=== PATIENT | female | born 1990 | race Caucasian/White ===

== ENCOUNTER 2017-04-04 13:23 | Emergency (ER) | payer MEDICARE, MEDICAID ==
--- NOTE | 2017-04-04 14:09 | ER Document Report ---
ED Medical Screen (RME) - General Chief Complaint: Suicidal Ideation Stated Complaint: PSYCH EVAL/SUICIDAL IDEATION Time Seen by Provider: 04/04/17 14:07 Notes: pt suicidal TRAVEL OUTSIDE OF THE [place] IN LAST 30 DAYS: No Past Medical History - Social History Chew tobacco use (# tins/day): No Frequency of alcohol use: None Drug Abuse: None Renal/ Medical History: Denies: Hx Peritoneal Dialysis Physical Exam - Vital signs Vitals: Temp Pulse Resp BP Pulse Ox 98.7 F 89 20 135/84 H 99 04/04/17 13:38 04/04/17 13:38 04/04/17 13:38 04/04/17 13:38 04/04/17 13:38 Course - Vital Signs Vital signs: Temp Pulse Resp BP Pulse Ox 98.7 F 89 20 135/84 H 99 04/04/17 13:38 04/04/17 13:38 04/04/17 13:38 04/04/17 13:38 04/04/17 13:38
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
[2017-04-04 15:22] LABS: ABSOLUTE EOSINOPHILS # (AUTO) 0.1 10^3/uL (0.0-0.6); ABSOLUTE LYMPHOCYTES (AUTO) 1.1 10^3/uL (0.5-4.7); ABSOLUTE MONOCYTES (AUTO) 0.4 10^3/uL (0.1-1.4); BASOPHILS % (AUTO) 0.6 % (0-2); HEMATOCRIT 37.7 % (36.0-47.0); HGB HCT DIFFERENCE 1.3; LYMPHOCYTES % (AUTO) 19.6 % (13-45); MEAN CORPUSCULAR HEMOGLOBIN 30.3 pg (27.0-33.4); MEAN CORPUSCULAR HGB CONC 34.6 g/dL (32.0-36.0); MEAN CORPUSCULAR VOLUME 88 fl (80-97); MONOCYTES % (AUTO) 7.7 % (3-13); SEGMENTED NEUTROPHILS % (AUTO) 70.1 % (42-78); WHITE BLOOD COUNT 5.7 10^3/uL (4.0-10.5)
[2017-04-04 15:23] LABS: APPEARANCE,URINE CLOUDY; BILIRUBIN,URINE NEGATIVE (NEGATIVE); CALCIUM OXALATE CRYSTALS,URINE TOO NUMEROUS TO CNT /HPF; GLUCOSE, URINE NEGATIVE (NEGATIVE); KETONES,URINE NEGATIVE (NEGATIVE); LEUKOCYTE ESTERASE,URINE TRACE (NEGATIVE); NITRITE,URINE NEGATIVE (NEGATIVE); PROTEIN,URINE 100 mg/dL (NEGATIVE); URINE SPECIFIC GRAVITY 1.036; UROBILINOGEN,URINE NEGATIVE mg/dL (<2.0)
[2017-04-04 15:31] LABS: URINE BARBITURATES SCREEN NEGATIVE; URINE METHADONE SCREEN NEGATIVE; URINE OPIATES LOW NEGATIVE; URINE PHENCYCLIDINE SCREEN NEGATIVE
[2017-04-04 15:35] LABS: ALANINE AMINOTRANSFERASE 28 U/L (9-52); ALBUMIN 4.9 g/dL (3.5-5.0); ALKALINE PHOSPHATASE 84 U/L (38-126); ANION GAP 16 (5-19); ASPARTATE AMINO TRANSFERASE 24 U/L (14-36); BILIRUBIN,DIRECT 0.3 mg/dL (0.0-0.4); BILIRUBIN,TOTAL 0.4 mg/dL (0.2-1.3); BLOOD UREA NITROGEN 9 mg/dL (7-20); CALCIUM 9.5 mg/dL (8.4-10.2); CARBON DIOXIDE 29 mmol/L (22-30); CHLORIDE 98 mmol/L (98-107); CREATININE RESULT 0.74 mg/dL (0.52-1.25); GLUCOSE 89 mg/dL (75-110); POTASSIUM 3.5 mmol/L (3.6-5.0); TOTAL PROTEIN 7.3 g/dL (6.3-8.2)
[2017-04-04 15:37] LABS: ALCOHOL < 10 mg/dL (NONE DETECTED)
--- NOTE | 2017-04-04 16:40 | ER Document Report ---
ED General - General Chief Complaint: Suicidal Ideation Stated Complaint: PSYCH EVAL/SUICIDAL IDEATION Time Seen by Provider: 04/04/17 14:07 Mode of Arrival: Ambulatory Information source: Patient Notes: This is a 26-year-old female with a history of epilepsy, PTSD who was brought into the emergency room because of suicidal ideations. TRAVEL OUTSIDE OF THE [place] IN LAST 30 DAYS: No - HPI Onset: Just prior to arrival Onset/Duration: Sudden Quality of pain: No pain Severity: None Pain Level: Denies Associated symptoms: denies: Chills, Fever Exacerbated by: Denies Relieved by: Denies Similar symptoms previously: Yes Recently seen / treated by doctor: Yes - Related Data Allergies/Adverse Reactions: No Known Allergies Allergy (Unverified 04/04/17 14:25) Home Medications: Current Home Medications Brivaracetam [Briviact] 75 mg PO BID 04/04/17 [History] Clobazam [Onfi] 20 mg PO QHS 04/04/17 [History] Lamotrigine [Lamictal] 50 mg PO DAILY 04/04/17 [History] Norethindrone 0.35 mg PO DAILY 04/04/17 [History] Rufinamide [Banzel] 800 mg PO BID 04/04/17 [History] Sertraline HCl [Zoloft] 25 mg PO DAILY 04/04/17 [History] Past Medical History - General Information source: Patient - Social History Smoking Status: Never Smoker Cigarette use (# per day): No Chew tobacco use (# tins/day): No Frequency of alcohol use: None Drug Abuse: None Lives with: Family Family History: None Patient has suicidal ideation: Yes Patient has homicidal ideation: No - Past Medical History Cardiac Medical History: Reports: None Pulmonary Medical History: Reports: None EENT Medical History: Reports: None Neurological Medical History: Reports: Hx Seizures Endocrine Medical History: Reports: None Renal/ Medical History: Denies: Hx Peritoneal Dialysis Malignancy Medical History: Reports: None GI Medical History: Reports: None Musculoskeltal Medical History: Reports None Skin Medical History: Reports None Psychiatric Medical History: Reports: Hx Anxiety, Hx Depression, Hx Post Traumatic Stress Disorder Review of Systems - Review of Systems Constitutional: denies: Chills, Fever EENT: No symptoms reported Cardiovascular: No symptoms reported Respiratory: No symptoms reported Gastrointestinal: No symptoms reported Genitourinary: No symptoms reported Female Genitourinary: No symptoms reported Musculoskeletal: No symptoms reported Skin: No symptoms reported Hematologic/Lymphatic: No symptoms reported Neurological/Psychological: See HPI Physical Exam - Vital signs Vitals: Temp Pulse Resp BP Pulse Ox 98.7 F 89 20 135/84 H 99 04/04/17 13:38 04/04/17 13:38 04/04/17 13:38 04/04/17 13:38 04/04/17 13:38 Notes: Physical exam: GENERAL: 26-year-old female, alert and oriented 3, no acute distress HEAD: Atraumatic, normocephalic. EYES: Pupils equal round and reactive to light, extraocular movements intact, sclera anicteric, conjunctiva are normal. ENT: TMs normal, nares patent, oropharynx clear without exudates. Moist mucous membranes. NECK: Normal range of motion, supple without obvious mass or JVD. LUNGS: Breath sounds clear to auscultation bilaterally and equal. No wheezes rales or rhonchi. HEART: Regular rate and rhythm without murmurs, rubs or gallops. ABDOMEN: Soft, normoactive bowel sounds. No tenderness to palpation. No guarding, no rebound. No masses appreciated. EXTREMITIES: Normal range of motion, no pitting or edema. No clubbing or cyanosis. NEUROLOGICAL: Cranial nerves II through XII grossly intact. Normal speech, moving all extremities. PSYCH: Normal mood, normal affect. SKIN: Warm, Dry, normal turgor, no rashes or lesions noted. Course - Vital Signs Vital signs: Temp Pulse Resp BP Pulse Ox 97.6 F 73 14 103/61 99 04/04/17 17:28 04/04/17 17:28 04/04/17 15:43 04/04/17 17:28 04/04/17 17:28 - Laboratory Result Diagrams: 04/04/17 14:44 04/04/17 14:44 Laboratory results interpreted by me: 04/04/17 04/04/17 04/04/17 14:44 14:44 14:44 Plt Count 120 L Potassium 3.5 L Urine Protein 100 H Urine Blood LARGE H Ur Leukocyte Esterase TRACE H Urine Ascorbic Acid 40 H Salicylates < 1.0 L - EKG Interpretation by Me Rate: Normal Rhythm: NSR - EKG shows normal sinus rhythm with a ventricular rate of 79, no acute ST-T wave changes Discharge - Discharge Clinical Impression: Mood disorder NOS Condition: Stable Disposition: HOME, SELF-CARE Additional Instructions: Recommendations: Continue current medicines as plan: Increasing the Lamictal to 200 mg. Follow-up with Dr. Rothman as well as your counselors. Return to the emergency room for any worsening thoughts of depression with thoughts of losing control. Referrals: RACHELLE OLIVEIRA MD [Primary Care Provider] - Follow up as needed
[2017-04-04 17:32] VITALS: BP 103/61
--- NOTE | 2017-04-04 20:20 | EKG REPORT ---
SEVERITY:- NORMAL ECG - SINUS RHYTHM NONSPECIFIC INFERIOR ST CHANGES : Confirmed by: Jose Antonio Hernandez MD 04-Apr-2017 20:20:13
== END 2017-04-04 18:14 | disposition home or self-care (01) ==
LOC: ER 13:23
DX: F39 Unspecified mood [affective] disorder (principal); R45.851 Suicidal ideations
CPT/HCPCS: 36415; 80053; 80307; 81001; 81025; 85025; 93005; 93010; 99285

== ENCOUNTER 2017-06-10 14:35 | Emergency (ER) | payer MEDICARE, MEDICAID ==
--- NOTE | 2017-06-10 16:30 | RADIOLOGY REPORT (SQ) ---
EXAM DESCRIPTION: FOOT BILATERAL 3 VIEWS COMPLETED DATE/TIME: 06/10/2017 4:14 pm REASON FOR STUDY: hurt feet, bruising COMPARISON: None. NUMBER OF VIEWS: Three views. TECHNIQUE: AP, lateral and oblique radiographic images acquired of the right and left foot. LIMITATIONS: None. FINDINGS: MINERALIZATION: Normal. BONES: No acute fracture or dislocation. No worrisome bone lesions. JOINTS: No effusions. SOFT TISSUES: No soft tissue swelling. No foreign body. OTHER: No other significant finding. IMPRESSION: NEGATIVE STUDY OF THE RIGHT AND LEFT FEET. NO RADIOGRAPHIC EVIDENCE OF ACUTE INJURY. TECHNICAL DOCUMENTATION: JOB ID: [id number] [employer]- All Rights Reserved
[2017-06-10 18:44] LABS: HEMATOCRIT 35.5 % (36.0-47.0); HEMOGLOBIN 11.8 g/dL (12.0-15.5); MEAN CORPUSCULAR HEMOGLOBIN 29.7 pg (27.0-33.4); MEAN CORPUSCULAR HGB CONC 33.3 g/dL (32.0-36.0); MEAN CORPUSCULAR VOLUME 89 fl (80-97); RED BLOOD COUNT 3.98 10^6/uL (3.72-5.28); WHITE BLOOD COUNT 7.1 10^3/uL (4.0-10.5)
[2017-06-10 18:45] LABS: RED CELL DISTRIBUTION WIDTH 13.5 % (11.5-14.0)
[2017-06-10 18:46] LABS: PLATELET COUNT 188 10^3/uL (150-450)
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
[2017-06-10 19:12] VITALS: BP 97/51
== END 2017-06-10 19:10 | disposition home or self-care (01) ==
LOC: ER 14:35
DX: S90.30XA Contusion of unspecified foot, initial encounter (principal); M79.671 Pain in right foot; M79.672 Pain in left foot; X58.XXXA Exposure to other specified factors, initial encounter; Y93.02 Activity, running
CPT/HCPCS: 36415; 85027; 99283

== ENCOUNTER 2017-06-22 13:53 | Emergency (ER) | payer MEDICARE, MEDICAID ==
--- NOTE | 2017-06-22 14:51 | ER Document Report ---
ED Medical Screen (RME) - General Chief Complaint: Psych Problem Stated Complaint: PSYCH EVALUATION Time Seen by Provider: 06/22/17 14:50 Mode of Arrival: Ambulatory Information source: Patient Notes: This is a 26-year-old female with a history of bipolar affective disorder, PTSD , anxiety, depression and presents to the emergency room with agitation, hearing music (that is not there), "hearing words inappropriately" as per mother. Patient is normally followed at [facility] TRAVEL OUTSIDE OF THE [place] IN LAST 30 DAYS: No - Related Data Allergies/Adverse Reactions: No Known Allergies Allergy (Verified 06/22/17 13:54) Past Medical History - Social History Chew tobacco use (# tins/day): No Frequency of alcohol use: None Drug Abuse: None Neurological Medical History: Reports: Hx Seizures Renal/ Medical History: Denies: Hx Peritoneal Dialysis Psychiatric Medical History: Reports: Hx Anxiety, Hx Depression - PTSD, anxiety , Hx Post Traumatic Stress Disorder Past Surgical History: Reports: Hx Neurologic Surgery - Lobe ectomy left , cordical left side [facility] Physical Exam - Vital signs Vitals: Temp Pulse Resp BP Pulse Ox 98.6 F 84 16 102/61 97 06/22/17 13:59 06/22/17 13:59 06/22/17 13:59 06/22/17 13:59 06/22/17 13:59 Course - Vital Signs Vital signs: Temp Pulse Resp BP Pulse Ox 98.6 F 84 16 102/61 97 06/22/17 13:59 06/22/17 13:59 06/22/17 13:59 06/22/17 13:59 06/22/17 13:59
--- NOTE | 2017-06-22 15:53 | ER Document Report ---
ED Psych Disorder / Suicide <LUZMARIA TRACY - Last Filed: 06/23/17 10:04> - General Mode of Arrival: Ambulatory TRAVEL OUTSIDE OF THE [place] IN LAST 30 DAYS: No <STELLA CALIXTO - Last Filed: 06/23/17 10:20> - General Chief Complaint: Psych Problem Stated Complaint: PSYCH EVALUATION Time Seen by Provider: 06/22/17 14:50 Notes: Patient was brought in by EMS stating that she is feeling as if she wants to harm herself. Patient has been extremely agitated and upset and argumentative over the past 3 days or so. Patient is under the care of [facility]. Her diagnoses include bipolar disorder, anxiety, depression, and PTSD. Mother is here with the patient and she has medical power of erisa attorney over this patient. She says that her behavior is totally out of character for her. They have not had any recent medication adjustments or additions or deletions. The last such change was about a month ago. Patient's has been attending [facility] which she likes to do. However, mother says that she has had "total anger" over the last 2 days. Today, she is expressing feelings of wanting to hurt herself. She says that she is hearing voices. She had a similar episode in March and at that time it was felt that it was due to medication changes that were being performed on the patient. Patient also has a history of tuberous sclerosis and seizures. (STELLA CALIXTO) - Related Data Allergies/Adverse Reactions: No Known Allergies Allergy (Verified 06/22/17 13:54) Past Medical History - General Information source: Patient - Social History Smoking Status: Never Smoker Chew tobacco use (# tins/day): No Frequency of alcohol use: None Drug Abuse: None Family History: None, Reviewed & Not Pertinent Patient has suicidal ideation: Yes Patient has homicidal ideation: No Neurological Medical History: Reports: Hx Seizures, Other - History of tuberous sclerosis Psychiatric Medical History: Reports: Hx Anxiety, Hx Bipolar Disorder, Hx Depression - PTSD, anxiety, Hx Post Traumatic Stress Disorder Past Surgical History: Reports: Hx Neurologic Surgery - Lobeectomy left , cordical left side [facility] <STELLA CALIXTO - Last Filed: 06/23/17 10:20> Review of Systems <LUZMARIA TRACY - Last Filed: 06/23/17 10:04> <STELLA CALIXTO - Last Filed: 06/23/17 10:20> - Review of Systems Notes: REVIEW OF SYSTEMS: CONSTITUTIONAL : Denies fever. EENT: Denies eye, ear, nose or mouth or throat pain or other symptoms. CARDIOVASCULAR: Denies chest pain. RESPIRATORY: Denies cough, chest congestion, or shortness of breath. GASTROINTESTINAL: Denies abdominal pain or nausea, vomiting, or diarrhea. GENITOURINARY: Denies difficulty or painful urinating, urinary frequency, blood in urine. MUSCULOSKELETAL: Denies back or neck pain. Denies joint pain or swelling. Patient has had pain in both of her feet for about a month. She was seen here 2 weeks ago for the same and no significant findings. Recalls no injuries. SKIN: Denies rash or skin lesions. NEUROLOGICAL: Denies LOC or altered mental status. Denies headache. Denies sensory loss or motor deficits. Psychiatric: See HPI. ALL OTHER SYSTEMS REVIEWED AND NEGATIVE. (STELLA CALIXTO) Physical Exam <LUZMARIA TRACY - Last Filed: 06/23/17 10:04> - Vital signs Interpretation: Normal <STELLA CALIXTO - Last Filed: 06/23/17 10:20> - Vital signs Vitals: Temp Pulse Resp BP Pulse Ox 98.6 F 84 16 102/61 97 06/22/17 13:59 06/22/17 13:59 06/22/17 13:59 06/22/17 13:59 06/22/17 13:59 - Notes Notes: PHYSICAL EXAMINATION: GENERAL: Well-appearing, in no acute distress. Vital signs are all normal. HEAD: Atraumatic, normocephalic. EYES: Pupils equal round and reactive to light, extraocular movements intact. ENT: oropharynx clear without exudates. Moist mucous membranes. NECK: Normal range of motion, supple. LUNGS: Breath sounds clear and equal bilaterally. HEART: Regular rate and rhythm without murmurs. ABDOMEN: Soft, nontender. No guarding or rebound. No masses. BACK: No tenderness throughout entire back. EXTREMITIES: Normal range of motion without pain. NEUROLOGICAL: Normal speech, normal gait. Normal sensory, motor, and reflex exams. Awake, alert, and oriented x3. PSYCH: Normal mood, normal affect. SKIN: Warm, dry, no rashes. (STELLA CALIXTO) Course - Laboratory Result Diagrams: 06/22/17 15:19 06/22/17 15:19 <LUZMARIA TRACY - Last Filed: 06/23/17 10:04> - Laboratory Result Diagrams: 06/22/17 15:19 06/22/17 15:19 - EKG Interpretation by Me EKG shows normal: Sinus rhythm Rate: Normal Rhythm: NSR <STELLA CALIXTO - Last Filed: 06/23/17 10:20> - Re-evaluation Re-evalutation: 06/22/17 16:10 Psych consultation requested. (STELLA CALIXTO) - Vital Signs Vital signs: Temp Pulse Resp BP Pulse Ox 98.2 F 76 20 100/55 L 100 06/23/17 06:44 06/23/17 06:44 06/23/17 06:44 06/23/17 06:44 06/23/17 06:44 - Laboratory Laboratory results interpreted by me: 06/22/17 06/22/17 06/22/17 15:19 15:19 15:19 Plt Count 110 L Alkaline Phosphatase 133 H Ur Leukocyte Esterase TRACE H Salicylates < 1.0 L Acetaminophen < 10 L - EKG Interpretation by Me Additional EKG results interpreted by me: 06/22/17 16:10 EKG is normal. (STELLA CALIXTO) Discharge <LUZMARIA TRACY - Last Filed: 06/23/17 10:04> <STELLA CALIXTO - Last Filed: 06/23/17 10:20> - Discharge Clinical Impression: Suicidal ideation Depression Qualifiers: Depression Type: unspecified Qualified Code(s): F32.9 - Major depressive disorder, single episode, unspecified Condition: Stable Additional Instructions: DEPRESSION: Your evaluation reveals that you have mental depression. While symptoms may be vague, they often include disturbance of sleep, fatigue, loss of appetite , and general loss of interest in life. While depression may be a side effect of drugs, or a reaction to a major change in your life, many cases have no known cause. If depression is acute, and related to a major loss in your life, you can expect it to clear completely with time. If you have been depressed a long time , are prone to repeated bouts of depression or low mood, or have been thinking of suicide, get help. Depression can be treated with anti-depressant medication and counselling. Long-term depression will often take a few weeks to clear, even with appropriate medication. Follow-up care is important. SUICIDAL IDEATION: Suicidal ideation is a common medical term for thoughts about suicide, which may be as detailed as a formulated plan, without the suicidal act itself. Although most people who undergo suicidal ideation do not commit suicide, some go on to make suicide attempts. The range of suicidal ideation varies greatly from fleeting to detailed planning, role playing, and unsuccessful attempts. While thoughts about suicide are common, most people do not carry out serious actions to commit suicide. Based upon your evaluation and discussion with you, we do not believe you are currently at risk to act upon your thoughts of suicide. You have agreed to return to the Emergency Department, at any time , if you feel inclined to act upon your suicidal thoughts. FOLLOW-UP CARE: Please follow-up with your outpatient mental health provider and coordinate with your medical doctor about the possibility of discontinuing tramadol. If you experience worsening or a significant change in your symptoms, notify the physician immediately or return to the Emergency Department at any time for re- evaluation. Referrals: RACHELLE OLIVEIRA MD [Primary Care Provider] - Follow up as needed [facility] [Outside] - Follow up in 3-5 days
[2017-06-22 15:54] LABS: ABSOLUTE LYMPHOCYTES (AUTO) 1.8 10^3/uL (0.5-4.7); ABSOLUTE MONOCYTES (AUTO) 0.4 10^3/uL (0.1-1.4); ABSOLUTE NEUT (AUTO) 3.8 10^3/uL (1.7-8.2); BASOPHILS % (AUTO) 0.4 % (0-2); EOSINOPHILS % (AUTO) 0.8 % (0-6); HEMATOCRIT 36.8 % (36.0-47.0); HEMOGLOBIN 12.5 g/dL (12.0-15.5); LYMPHOCYTES % (AUTO) 29.6 % (13-45); MEAN CORPUSCULAR VOLUME 88 fl (80-97); MONOCYTES % (AUTO) 6.8 % (3-13); PLATELET COUNT 110 10^3/uL (150-450); RED BLOOD COUNT 4.16 10^6/uL (3.72-5.28); RED CELL DISTRIBUTION WIDTH 13.7 % (11.5-14.0); SEGMENTED NEUTROPHILS % (AUTO) 62.4 % (42-78); TOTAL CELLS COUNTED % (AUTO) 100 %; WHITE BLOOD COUNT 6.1 10^3/uL (4.0-10.5)
[2017-06-22 16:03] LABS: ALANINE AMINOTRANSFERASE 33 U/L (9-52); ALBUMIN 4.4 g/dL (3.5-5.0); ALKALINE PHOSPHATASE 133 U/L (38-126); ANION GAP 10 (5-19); ASPARTATE AMINO TRANSFERASE 25 U/L (14-36); BILIRUBIN,DIRECT 0.3 mg/dL (0.0-0.4); BILIRUBIN,TOTAL 0.3 mg/dL (0.2-1.3); BLOOD UREA NITROGEN 10 mg/dL (7-20); CALCIUM 9.7 mg/dL (8.4-10.2); CARBON DIOXIDE 29 mmol/L (22-30); CHLORIDE 103 mmol/L (98-107); GLUCOSE 87 mg/dL (75-110); POTASSIUM 3.7 mmol/L (3.6-5.0); SODIUM 141.6 mmol/L (137-145); TOTAL PROTEIN 6.8 g/dL (6.3-8.2); URINE AMPHETAMINES SCREEN NEGATIVE; URINE BARBITURATES SCREEN NEGATIVE; URINE BENZODIAZEPINES SCREEN UNCONFIRMED POSITIVE; URINE COCAINE SCREEN NEGATIVE; URINE MARIJUANA (THC) SCREEN NEGATIVE; URINE METHADONE SCREEN NEGATIVE; URINE PHENCYCLIDINE SCREEN NEGATIVE
[2017-06-22 16:04] LABS: ACETAMINOPHEN < 10 ug/mL (10-30); ALCOHOL < 10 mg/dL (NONE DETECTED); SALICYLATE < 1.0 mg/dL (2.0-20.0)
[2017-06-22 16:08] LABS: AMORPHOUS SEDIMENT,URINE TRACE /HPF; APPEARANCE,URINE CLOUDY; BILIRUBIN,URINE NEGATIVE (NEGATIVE); COLOR,URINE YELLOW; GLUCOSE, URINE NEGATIVE (NEGATIVE); KETONES,URINE NEGATIVE (NEGATIVE); LEUKOCYTE ESTERASE,URINE TRACE (NEGATIVE); NITRITE,URINE NEGATIVE (NEGATIVE); PROTEIN,URINE NEGATIVE (NEGATIVE); URINE SPECIFIC GRAVITY 1.017; UROBILINOGEN,URINE NEGATIVE mg/dL (<2.0)
[2017-06-22] MEDS ORDERED: RUFINAMIDE PO SCH (22:00)
[2017-06-22] MEDS ORDERED: CLOBAZAM PO SCH (22:00)
[2017-06-22] MEDS ORDERED: BANZEL PO SCH (22:00)
[2017-06-22] MEDS ORDERED: LAMOTRIGINE 200 MG PO SCH (22:00)
[2017-06-22] MEDS ORDERED: (PENDING PHARMACY ID) (Lamotrigine [Lamictal] 200 MG) PO SCH (22:00)
[2017-06-22] MEDS: BRIVIACT PO SCH (22:29)
--- NOTE | 2017-06-23 09:34 | ER Document Report ---
Doctor's Note Notes: 06/23/17 09:31 Rounds: Chart reviewed. Patient interviewed. Being evaluated for depression and suicidal thoughts. She says she is feeling better. She says that she thinks the tramadol that she was prescribed is what caused her to behave in the manner in which she was behaving. She says that the tramadol was prescribed for her sleep. Patient does appear to be better this morning. Vital signs are all normal. Lab studies were also essentially normal. Positive for benzos on her drug screen. Patient appears to be medically stable for transfer or discharge. Stacey Cote MD
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
--- NOTE | 2017-06-23 09:57 | EKG REPORT ---
SEVERITY:- NORMAL ECG - SINUS RHYTHM : Confirmed by: Lakeisha Dave 23-Jun-2017 09:55:58
[2017-06-23] MEDS ORDERED: SERTRALINE HCL 50 MG TABLET PO SCH (10:00)
[2017-06-23] MEDS ORDERED: BANZEL 400 MG PO SCH (10:00)
[2017-06-23] MEDS ORDERED: RUFINAMIDE 800 MG PO SCH (10:00)
[2017-06-23] MEDS ORDERED: NORETHINDRONE 0.35 MG PO SCH (10:00)
[2017-06-23] MEDS ORDERED: (PENDING PHARMACY ID) (Sertraline Hcl [Zoloft] 200 MG) PO SCH (10:00)
[2017-06-23] MEDS ORDERED: BRIVARACETAM 150 MG PO SCH (10:00)
--- NOTE | 2017-06-23 10:04 | PSYCHOLOGICAL NOTE ---
Psych Note - Psych Note Psych Note: Reason for consult: suicidal ideation; auditory hallucinations Consent Permissions:mother Fox, This is a 26-year-old female with a history of bipolar affective disorder, PTSD , anxiety, depression and presents to the emergency room with agitation, hearing music (that is not there), "hearing words inappropriately" as per mother. Patient is normally followed at [facility]. Conducted check in with patient Patient disclosed she is feeling calmer today. She states that she thinks she had interaction with her medication. Patient states that she is taking Tramadol only 3 times; however, every time she is taking it she is come home irritated feeling like everybody is against her and argumentative. Patient disclosed that she knows that sometimes with medications it gets worse before it gets better. Patient denies current thoughts of wanting to harm her self. 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 Patient does not meet IVC criteria per [place] GS 122C. Patient denies current suicidal homicidal ideation. Delusions are absent behaviors congruent with intact reality based presentation i.e. organized and linear thought process. Patient disclosed that she has taken tramadol only 3 times however each time she is taking it appears that she has a negative reaction which includes irritability and dark thoughts. Patient is recommended to discuss with her outpatient provider possible discontinuing tramadol. Dr. Frias was consulted and the care management this patient; attending physician in agreement with recommendations and disposition.
[2017-06-23] MEDS: BRIVIACT PO SCH (10:22)
[2017-06-23 11:24] VITALS: BP 105/53
== END 2017-06-23 11:24 | disposition home or self-care (01) ==
LOC: ER 13:53
DX: F32.9 Major depressive disorder, single episode, unspecified (principal); R45.1 Restlessness and agitation; F41.9 Anxiety disorder, unspecified; F43.10 Post-traumatic stress disorder, unspecified; Q85.1 Tuberous sclerosis
CPT/HCPCS: 93005; 99285; 36415; 80307 ×4; 84703; 85025; 80053; 81001; 93010; A9270

== ENCOUNTER 2017-07-07 11:49 | Emergency (ER) | payer OTHER, MEDICARE, MEDICAID ==
[2017-07-07 12:19] VITALS: BP 116/63
[2017-07-07] MEDS ORDERED: ACETAMINOPHEN 325 MG TABLET PO ONE (12:48)
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
== END 2017-07-07 14:50 | disposition home or self-care (01) ==
LOC: ER 11:49
DX: S63.601A Unspecified sprain of right thumb, initial encounter (principal); S16.1XXA Strain of muscle, fascia and tendon at neck level, initial encounter; S80.11XA Contusion of right lower leg, initial encounter; S39.012A Strain of muscle, fascia and tendon of lower back, initial encounter; M54.2 Cervicalgia; R51 Headache; M25.541 Pain in joints of right hand; R07.1 Chest pain on breathing; V49.50XA Passenger injured in collision with unspecified motor vehicles in traffic accident, initial encounter; Q85.1 Tuberous sclerosis
CPT/HCPCS: 70450; 71046; 72070; 72125; 99284

== ENCOUNTER 2018-12-31 11:24 | Emergency (ER) | payer MEDICARE, MEDICAID ==
--- NOTE | 2018-12-31 11:51 | ER Document Report ---
ED Medical Screen (RME) - General Chief Complaint: Suicidal Ideation Stated Complaint: PSYCH EVAL Time Seen by Provider: 12/31/18 11:41 Primary Care Provider: RACHELLE OLIVEIRA MD [Primary Care Provider] - Follow up as needed Mode of Arrival: Ambulatory Information source: Patient, Relative Notes: This 28-year-old female presents emergency department with reports that she feels like hurting herself. Patient does have history of depression. Also has history of seizures some ID. Patient reports that she started having feelings like she wanted to hurt her self yesterday. Reports she has had these feelings in the past never attempted suicide but will do things like punch herself in the face and cut herself. She reports she does not have a plan. Mother is with er. Mother reports she is on a lot of different medications. She is wondering if her current state is due to interactions with these medications. She has a history of epilepsy and also reports that she has been on her manses since the beginning of November. Patient is very pale. Speaks very slowly. I have greeted and performed a rapid initial assessment of this patient. A comprehensive ED assessment and evaluation of the patient, analysis of test results and completion of the medical decision making process will be conducted by additional ED providers. Dictation of this chart was performed using voice recognition software; therefore, there may be some unintended grammatical errors. TRAVEL OUTSIDE OF THE [place] IN LAST 30 DAYS: No - Related Data Allergies/Adverse Reactions: No Known Allergies Allergy (Verified 12/31/18 11:24) Past Medical History Neurological Medical History: Reports: Hx Seizures Renal/ Medical History: Denies: Hx Peritoneal Dialysis Psychiatric Medical History: Reports: Hx Anxiety, Hx Bipolar Disorder, Hx Depression - PTSD, anxiety, Hx Post Traumatic Stress Disorder Past Surgical History: Reports: Hx Neurologic Surgery - Lobeectomy left , cordical resection, vagal nerve stimulator Physical Exam - Vital signs Vitals: Temp Pulse Resp BP Pulse Ox 97.7 F 81 16 112/60 98 12/31/18 11:28 12/31/18 11:28 12/31/18 11:28 12/31/18 11:28 12/31/18 11:28 Course - Vital Signs Vital signs: Temp Pulse Resp BP Pulse Ox 97.7 F 81 16 112/60 98 12/31/18 11:28 12/31/18 11:28 12/31/18 11:28 12/31/18 11:28 12/31/18 11:28 Doctor's Discharge - Discharge Referrals: RACHELLE OLIVEIRA MD [Primary Care Provider] - Follow up as needed
[2018-12-31 13:09] LABS: ACETAMINOPHEN < 10 ug/mL (10-30); ALBUMIN 4.5 g/dL (3.5-5.0); ALCOHOL < 10 mg/dL (NONE DETECTED); ALKALINE PHOSPHATASE 98 U/L (38-126); ANION GAP 8 (5-19); ASPARTATE AMINO TRANSFERASE 28 U/L (14-36); BILIRUBIN,DIRECT 0.2 mg/dL (0.0-0.4); BILIRUBIN,TOTAL 0.2 mg/dL (0.2-1.3); BLOOD UREA NITROGEN 9 mg/dL (7-20); CALCIUM 9.5 mg/dL (8.4-10.2); CARBON DIOXIDE 31 mmol/L (22-30); CHLORIDE 103 mmol/L (98-107); GLUCOSE 87 mg/dL (75-110); IRON 33.5 ug/dL (37-170); POTASSIUM 4.4 mmol/L (3.6-5.0); SALICYLATE < 1.0 mg/dL (2.0-20.0); TOTAL PROTEIN 7.1 g/dL (6.3-8.2); URINE AMPHETAMINES SCREEN NEGATIVE; URINE BARBITURATES SCREEN NEGATIVE; URINE BENZODIAZEPINES SCREEN UNCONFIRMED POSITIVE; URINE COCAINE SCREEN NEGATIVE; URINE MARIJUANA (THC) SCREEN NEGATIVE; URINE METHADONE SCREEN NEGATIVE; URINE PHENCYCLIDINE SCREEN NEGATIVE
--- NOTE | 2018-12-31 13:27 | ER Document Report ---
Entered by JR ARZATE SCRIBE 12/31/18 [id number] Acting as scribe for:MUNA MILLER MD ED Psych Disorder / Suicide <DEB COX - Last Filed: 12/31/18 14:41> - General Mode of Arrival: Ambulatory TRAVEL OUTSIDE OF THE [place] IN LAST 30 DAYS: No <MUNA MILLER - Last Filed: 12/31/18 15:51> - General Chief Complaint: Suicidal Ideation Stated Complaint: PSYCH EVAL Time Seen by Provider: 12/31/18 11:41 Primary Care Provider: [facility] [Provider Group] - Follow up tomorrow (Call tomorrow for an appointment in the next 1 to 2 days, if the office has not already contacted you.) [facility] [Outside] - Follow up in 3-5 days [facility] Crisis [facility] [Outside] - Follow up as needed RACHELLE OLIVEIRA MD [NO LOCAL MD] - 01/01/19 Notes: Patient is a 28 year old female with tuberous sclerosis complex that presents to the emergency department today with complaints of auditory hallucinations and suicidal ideation. Mom at bedside states this has been an intermittent issue for the problem off and on for years. Mom states the patient's Afinitor was recently increased and she isn't sure if this could be related to this recent exacerbation of underlying suicidal ideation. Mom reports that yesterday the patient went to the beach. Mom reports that on the way to the beach the patient mentioned suicidal ideation but while at the beach she was fine. While on the way back home from the beach the patient again began mentioning suicidal ideation. Patient states that the voice she hears is a lesly voice. Patient mentions that the voice tells her things like "i should hit myself" and "telling me different things that people said and did". The patient is followed by hematology oncology at [facility], they have been checking her blood levels since she began having a nonstop menstrual period 3-1/2 weeks ago. Most recently the hemoglobin was just over 9, and the mother started iron supplements. (MUNA MILLER) - Related Data Allergies/Adverse Reactions: No Known Allergies Allergy (Verified 12/31/18 11:24) Past Medical History - General Information source: Patient, Relative - Social History Smoking Status: Never Smoker Cigarette use (# per day): No Chew tobacco use (# tins/day): No Frequency of alcohol use: None Drug Abuse: None Lives with: Family Family History: None, Reviewed & Not Pertinent Patient has suicidal ideation: Yes Patient has homicidal ideation: No Neurological Medical History: Reports: Hx Seizures Psychiatric Medical History: Reports: Hx Anxiety, Hx Bipolar Disorder, Hx Depression, Hx Post Traumatic Stress Disorder Past Surgical History: Reports: Hx Neurologic Surgery - Lobeectomy left , cordical resection, vagal nerve stimulator <MUNA MILLER - Last Filed: 12/31/18 15:51> Review of Systems - Review of Systems Constitutional: No symptoms reported EENT: No symptoms reported Cardiovascular: No symptoms reported Respiratory: No symptoms reported Gastrointestinal: No symptoms reported Genitourinary: No symptoms reported Female Genitourinary: No symptoms reported Musculoskeletal: No symptoms reported Skin: No symptoms reported Hematologic/Lymphatic: No symptoms reported Neurological/Psychological: See HPI, Suicidal ideation -: Yes All other systems reviewed and negative <MUNA MILLER - Last Filed: 12/31/18 15:51> Physical Exam <MUNA MILLER - Last Filed: 12/31/18 15:51> - Vital signs Vitals: Temp Pulse Resp BP Pulse Ox 97.7 F 81 16 112/60 98 12/31/18 11:28 12/31/18 11:28 12/31/18 11:28 12/31/18 11:28 12/31/18 11:28 - Notes Notes: Physical Exam: General: Alert. Cooperative. Slow deliberate speech. HEENT: Normocephalic. Atraumatic. PERRL. Extraocular movements intact. Oropharynx clear. Dry mucous membranes. Pale conjunctiva. Neck: Supple. Non-tender. Respiratory: No respiratory distress. Clear and equal breath sounds bilaterally. Cardiovascular: Regular rate and rhythm. Abdominal: Normal Inspection. Non-tender. No distension. Normal Bowel Sounds. Back: No gross abnormalities. Extremities: Moves all four extremities. Upper extremities: Normal inspection. Normal ROM. Nailbeds are pale. Lower extremities: Normal inspection. No edema. Normal ROM. Neurological: Normal cognition. AAOx4. Slow deliberate speech. Psychological: Flat affect. Skin: Warm. Dry. Pale color. (MUNA MILLER) Course - Laboratory Result Diagrams: 12/31/18 13:26 12/31/18 12:12 <DEB COX - Last Filed: 12/31/18 14:41> - Laboratory Result Diagrams: 12/31/18 13:26 12/31/18 12:12 - EKG Interpretation by Me EKG shows normal: Sinus rhythm, Alba, Intervals, QRS Complexes, ST-T Waves Rate: Normal - 76 Rhythm: NSR - Consults Dr. Menard Time consulted: 15:20 Consulted provider: follow-up in office - She will have the office contact the mother for an appointment time. She recommends starting Provera 20 mg 3 times daily for 3 days. <MUNA MILLER - Last Filed: 12/31/18 15:51> - Re-evaluation Re-evalutation: 12/31/18 15:39 The patient's hemoglobin today is 8.6, on 06/22/2017 it was 12.5. The red cell indices are not changed from the previous CBC. The patient's vital signs today are essentially identical to what they were when she was seen here on 06/22/2017. (MUNA MILLER) - Vital Signs Vital signs: Temp Pulse Resp BP Pulse Ox 97.7 F 81 16 112/60 98 12/31/18 11:28 12/31/18 11:28 12/31/18 11:28 12/31/18 11:28 12/31/18 11:28 - Laboratory Laboratory results interpreted by me: 12/31/18 12/31/18 12/31/18 12:12 13:26 13:42 RBC 2.95 L Hgb 8.6 L Hct 25.6 L RDW 14.7 H Plt Count 111 L Carbon Dioxide 31 H Iron 33.5 L Urine Protein 30 H Urine Blood LARGE H Urine Ascorbic Acid 20 H Salicylates < 1.0 L Acetaminophen < 10 L Discharge <DEB COX - Last Filed: 12/31/18 14:41> <MUNA MILLER - Last Filed: 12/31/18 15:51> - Discharge Clinical Impression: Thoughts of self harm, Auditory hallucinations, History of post traumatic stress disorder Depression Qualifiers: Depression Type: unspecified Qualified Code(s): F32.9 - Major depressive disorder, single episode, unspecified Condition: Stable Disposition: HOME, SELF-CARE Additional Instructions: You have been evaluated by both medical and behavioral health providers while in the emergency department. You have been cleared from both acute medical and psychiatric services. You and your mother listed several stresses to include personal, familial and relational. Stress and medication changes can affect mood. You should attend your Primary Care Appointment tomorrow (01/01/19) to ad dress general medical and menstrual concerns and follow up with medication provider at [facility] ([facility]) within 3-5 days. DEPRESSION: Your evaluation reveals that you have mental depression. While symptoms may be vague, they often include disturbance of sleep, fatigue, loss of appetite, and general loss of interest in life. While depression may be a side effect of drugs, or a reaction to a major change in your life, many cases have no known cause. If depression is acute, and related to a major loss in your life, you can expect it to clear completely with time. If you have been depressed a long time, are prone to repeated bouts of depression or low mood, or have been thinking of suicide, get help. Depression can be treated with anti-depressant medication and counselling. Long-term depression will often take a few weeks to clear, even with appropriate medication. Follow-up care is important. SUICIDAL IDEATION: Suicidal ideation is a common medical term for thoughts about suicide, which may be as detailed as a formulated plan, without the suicidal act itself. Although most people who undergo suicidal ideation do not commit suicide, some go on to make suicide attempts. The range of suicidal ideation varies greatly from fleeting to detailed planning, role playing, and unsuccessful attempts. While thoughts about suicide are common, most people do not carry out serious actions to commit suicide. Based upon your evaluation and discussion with you, we do not believe you are currently at risk to act upon your thoughts of suicide. You have agreed to return to the Emergency Department, at any time, if you feel inclined to act upon your suicidal thoughts. FOLLOW-UP CARE: Your mother reported appointment with [facility] tomorrow (01/01/19) for general medical and menstrual issues. You are recommended to walk in to [facility] within 3-5 days for medication management. You have been provided the [facility] Mobile Crisis number for crisis, talk therapy and linkage to other supports/services. If you experience worsening or a significant change in your symptoms, notify the physician immediately, utilize mobile crisis or return to the Emergency Department at any time for re-evaluation. Prescriptions: Medroxyprogesterone Acetate [Provera] 20 mg PO TID #18 tablet Referrals: Vivian Kapoor [Outside] - Follow up in 3-5 days [facility] Crisis Team [Outside] - Follow up as needed RACHELLE OLIVEIRA MD [NO LOCAL MD] - 01/01/19 [facility] [Provider Group] - Follow up tomorrow (Call tomorrow for an appointment in the next 1 to 2 days, if the office has not already contacted you.) Scribe Attestation: 12/31/18 13:26 I personally performed the services described in the documentation, reviewed and edited the documentation which was dictated to the scribe in my presence, and it accurately records my words and actions. (MUNA MILLER) I personally performed the services described in the documentation, reviewed and edited the documentation which was dictated to the scribe in my presence, and it accurately records my words and actions.
[2018-12-31 13:36] LABS: ABSOLUTE EOSINOPHILS # (AUTO) 0.1 10^3/uL (0.0-0.6); ABSOLUTE LYMPHOCYTES (AUTO) 1.4 10^3/uL (0.5-4.7); ABSOLUTE MONOCYTES (AUTO) 0.3 10^3/uL (0.1-1.4); ABSOLUTE NEUT (AUTO) 2.5 10^3/uL (1.7-8.2); BASOPHILS % (AUTO) 0.5 % (0-2); EOSINOPHILS % (AUTO) 1.2 % (0-6); HEMATOCRIT 25.6 % (36.0-47.0); HEMOGLOBIN 8.6 g/dL (12.0-15.5); LYMPHOCYTES % (AUTO) 33.6 % (13-45); MEAN CORPUSCULAR HEMOGLOBIN 29.1 pg (27.0-33.4); MEAN CORPUSCULAR HGB CONC 33.5 g/dL (32.0-36.0); MEAN CORPUSCULAR VOLUME 87 fl (80-97); MONOCYTES % (AUTO) 6.7 % (3-13); PLATELET COUNT 111 10^3/uL (150-450); RED BLOOD COUNT 2.95 10^6/uL (3.72-5.28); RED CELL DISTRIBUTION WIDTH 14.7 % (11.5-14.0); TOTAL CELLS COUNTED % (AUTO) 100 %; WHITE BLOOD COUNT 4.3 10^3/uL (4.0-10.5)
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
[2018-12-31 15:38] LABS: APPEARANCE,URINE CLOUDY; BILIRUBIN,URINE NEGATIVE (NEGATIVE); COLOR,URINE AMBER; GLUCOSE, URINE NEGATIVE (NEGATIVE); KETONES,URINE NEGATIVE (NEGATIVE); LEUKOCYTE ESTERASE,URINE NEGATIVE (NEGATIVE); NITRITE,URINE NEGATIVE (NEGATIVE); PROTEIN,URINE 30 mg/dL (NEGATIVE); URINE SPECIFIC GRAVITY 1.009; UROBILINOGEN,URINE NEGATIVE mg/dL (<2.0)
[2018-12-31 16:32] VITALS: BP 115/62
--- NOTE | 2018-12-31 19:06 | EKG REPORT ---
SEVERITY:- NORMAL ECG - SINUS RHYTHM : Confirmed by: Jose Antonio Hernandez MD 31-Dec-2018 19:05:36
== END 2018-12-31 16:00 | disposition home or self-care (01) ==
LOC: ER 11:24
DX: R45.851 Suicidal ideations (principal); F32.9 Major depressive disorder, single episode, unspecified; R44.0 Auditory hallucinations
CPT/HCPCS: 36415; 80053; 80307; 81001; 83540; 84703; 85025; 86850; 86900; 86901; 93005; 93010; 99285